=== PATIENT | female | born 1945 | race Caucasian/White ===

== ENCOUNTER 2018-11-24 13:14 | Emergency (ER) | payer OTHER ==
[~2018-11-24] VITALS: Ht 160 cm; Wt 60.3 kg
[2018-11-24] MEDS ORDERED: NORVASC5 MG (13:38)
[2018-11-24] MEDS ORDERED: PROZAC10 MG (13:39)
[2018-11-24] MEDS ORDERED: PROZAC20 MG (13:39)
[2018-11-24] MEDS ORDERED: XANAX1 MG (13:40)
== END 2018-11-24 15:22 | disposition home or self-care (01) ==
LOC: ER 13:14
DX: M54.32 Sciatica, left side (principal); M25.562 Pain in left knee